=== PATIENT | female | born 1995 | race Caucasian/White ===

== ENCOUNTER 2018-05-24 09:37 | Emergency (ER) | payer MEDICAID ==
[2018-05-24 09:38] VITALS: BMI 18.5
[2018-05-24 09:48] VITALS: TEMP 98.6; O2SAT 100
[2018-05-24] MEDS ORDERED: Sodium Chloride 0.9% 1,000 ML IV STA (10:24)
[2018-05-24] MEDS ORDERED: DiphenhydrAMINE 50 mg/ml Inj IVP STA (10:25)
--- NOTE | 2018-05-24 10:28 | ED PDOC ---
Arrival/HPI - General Chief Complaint: Headache Historian: Patient - History of Present Illness Narrative History of Present Illness (Text): 05/24/18 10:26 22 y/o female, pmh including chronic headache/dizziness (seeing neurologist and junction maker), nkda, c/o feeling headache/dizziness x 3 years. Pt. stated that she has chronic headache/dizziness x 3 years, on and off, seeing neurologist Dr. Oliveros, stated that it's still there with no complete resolution, occasionally feeling chest pain and shortness of breath with dizziness/headache, dizziness as room spinning sensation, no chest pain or shortness of breath now, no cardiopulmonary complaints, no night sweat, no rash, no numbness or tingling, no other medical or psychological complaints. Past Medical History - Provider Review Nursing Documentation Reviewed: Yes - Past History Past History: Non-Contributing - Infectious Disease Hx of Infectious Diseases: None - Cardiac Hx Cardiac Disorders: No - Pulmonary Hx Asthma: Yes (Diagnosed in Jan 2015) - Neurological Hx Neurological Disorder: Yes Hx Dizziness: Yes Hx Headaches: Yes - HEENT Hx HEENT Disorder: No - Renal Hx Renal Disorder: No - Endocrine/Metabolic Hx Endocrine Disorders: No - Hematological/Oncological Hx Blood Disorders: No - Integumentary Hx Dermatological Disorder: No - Musculoskeletal/Rheumatological Hx Musculoskeletal Disorders: No - Gastrointestinal Hx Gastrointestinal Disorders: No - Genitourinary/Gynecological Hx Genitourinary Disorders: No - Psychiatric Hx Psychophysiologic Disorder: No Hx Substance Use: No - Anesthesia Hx Anesthesia Reactions: No Hx Malignant Hyperthermia: No Family/Social History - Physician Review Nursing Documentation Reviewed: Yes Family/Social History: Unknown Family HX Smoking Status: Never Smoked Hx Alcohol Use: No Hx Substance Use: No Allergies/Home Meds Allergies/Adverse Reactions: Allergies No Known Allergies Allergy (Verified 05/24/18 09:40) Home Medications: Home Meds Medication Instructions Recorded Confirmed Meclizine [Antivert] 12.5 mg PO TID PRN 05/24/18 05/24/18 Omeprazole 20 mg PO BID 05/24/18 05/24/18 Propranolol [Inderal] 10 mg PO BID 05/24/18 05/24/18 Topiramate [Trokendi Xr] 25 mg PO DAILY 05/24/18 05/24/18 Review of Systems - Review of Systems Constitutional: Fatigue. absent: Fevers Eyes: absent: Vision Changes ENT: absent: Hearing Changes Respiratory: absent: SOB, Cough Cardiovascular: absent: Chest Pain Gastrointestinal: absent: Abdominal Pain, Nausea, Vomiting Musculoskeletal: absent: Arthralgias, Back Pain Skin: absent: Rash, Pruritis Neurological: Headache, Dizziness Psychiatric: absent: Anxiety, Depression, Suicidal Ideation Physical Exam Vital Signs Reviewed: Yes Vital Signs Temp Pulse Resp BP Pulse Ox 05/24/18 09:43 98.6 F 113 H 16 135/95 H 100 Temperature: Afebrile Blood Pressure: Hypertensive Pulse: Tachycardic Respiratory Rate: Normal Appearance: Positive for: Well-Appearing, Non-Toxic, Comfortable Pain Distress: Mild Mental Status: Positive for: Alert and Oriented X 3 - Systems Exam Head: Present: Atraumatic, Normocephalic, Other (no temporal artery tenderness, no jaw claudication). No: Tenderness, Contusion, Swelling, Ecchymosis, Abrasion, Laceration Pupils: Present: PERRL Extroacular Muscles: Present: EOMI Conjunctiva: Present: Normal Ears: Present: NORMAL TM, Normal Canal. No: Erythema Mouth: Present: Moist Mucous Membranes Pharnyx: Present: Normal. No: ERYTHEMA, EXUDATE, TONSILS ENLARGED Nose (External): Present: Atraumatic. No: Abrasion, Contusion, Laceration Nose (Internal): Present: Normal Inspection, No Active Bleeding. No: Rhinorrhea, Septal Hematoma, Epistaxis Neck: Present: Normal Range of Motion, Trachea Midline. No: Meningeal Signs, MIDLINE TENDERNESS, Paraspinal Tenderness, Lymphadenopathy Respiratory/Chest: Present: Clear to Auscultation, Good Air Exchange. No: Respiratory Distress, Accessory Muscle Use, Wheezes, Decreased Breath Sounds, Rales, Retracting, Rhonchi, Tachypneic, Tender to Palpation Cardiovascular: Present: Regular Rate and Rhythm, Normal S1, S2. No: Murmurs Abdomen: No: Tenderness, Distention, Peritoneal Signs, Rebound, Guarding Back: Present: Normal Inspection. No: CVA Tenderness, Midline Tenderness, Paraspinal Tenderness, Pain with Leg Raise, Decubitus Ulcer Upper Extremity: Present: Normal Inspection, Normal ROM, NORMAL PULSES, Neurovascularly Intact, Capillary Refill < 2s. No: Cyanosis, Edema, Tenderness, Swelling, Deformity Lower Extremity: Present: Normal Inspection, NORMAL PULSES, Normal ROM, Neurovascularly Intact, Capillary Refill < 2 s. No: Edema, Tenderness, Swelling, Deformity Neurological: Present: GCS=15, CN II-XII Intact, Speech Normal, Normal Cerebel lar Funct, Gait Normal, Memory Normal, Other (normal finger to nose test, no focal neurological deficits, normal heel to suresh test. ) Skin: Present: Warm, Dry, Normal Color. No: Rashes Psychiatric: Present: Alert, Oriented x 3, Normal Insight, Normal Concentration Medical Decision Making ED Course and Treatment: 05/24/18 10:30 -labs -ct head -ekg -ivf/benadryl/reglan -observe and reassess 05/24/18 11:52 -Urine hcg is negative -EKG: NSR @ 90 BPM, no ST elevation or depression, no T wave inversion. -CT head Normal CT of the Head. No intracranial mass, hemorrhage or evidence of acute infarct. -Labs are nonsignificant -Trop is negative after 24 hours -Ddimer is negative -BNP is negative -PERC is negative -HEART score is low -UA show +yeast with no bacterial UTI, diflucan po ordered -Pt. feels well, no dizziness or headache, no cardiopulmonary complaints. All labs/radiology results discussed with the patient, advised outpatient follow up. -Discharge home with education on continue your meclizine and headache medication at home, follow up with your own pmd and neurologist/junction maker within 2 days, return to the ER for any new or worsening signs or symptoms. - RAD Interpretation Radiology Orders: 05/24/18 10:24 HEAD W/O CONTRAST [CT] Stat Date of service: 05/24/2018 PROCEDURE: CT HEAD WITHOUT CONTRAST. HISTORY: headache/dizziness x 3 years COMPARISON: None available. TECHNIQUE: Axial computed tomography images were obtained through the head/brain without intravenous contrast. Radiation dose: Total exam DLP = 843.83 mGy-cm. This CT exam was performed using one or more of the following dose reduction techniques: Automated exposure control, adjustment of the mA and/or kV according to patient size, and/or use of iterative reconstruction technique. FINDINGS: HEMORRHAGE: No intracranial hemorrhage. BRAIN: No mass effect or edema. No atrophy or chronic microvascular ischemic changes. VENTRICLES: Unremarkable. No hydrocephalus. CALVARIUM: Unremarkable. PARANASAL SINUSES: Unremarkable as visualized. No significant inflammatory changes. MASTOID AIR CELLS: Unremarkable as visualized. No inflammatory changes. OTHER FINDINGS: None. IMPRESSION: Normal CT of the Head. No intracranial mass, hemorrhage or evidence of acute infarct. Guest Experience Representative: Radiologist - EKG Interpretation EKG Interpretation (Text): 05/24/18 10:51 NSR @ 90 BPM, no ST elevation or depression, no T wave inversion. 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 Disposition/Present on Arrival - Present on Arrival Any Indicators Present on Arrival: No History of DVT/PE: No History of Uncontrolled Diabetes: No Urinary Catheter: No History of Decub. Ulcer: No History Surgical Site Infection Following: None - Disposition Have Diagnosis and Disposition been Completed?: Yes Diagnosis: Candidiasis, Chronic headache Disposition: HOME/ ROUTINE Disposition Time: 13:44 Patient Plan: Discharge Patient Problems: Current Active Problems Problem Status Onset Candidiasis Acute Condition: IMPROVED Additional Instructions: -Discharge home with education on continue your meclizine and headache medication at home, follow up with your own pmd and neurologist/junction maker within 2 days, return to the ER for any new or worsening signs or symptoms. Referrals: Jocelyne Linder DO [Primary Care Provider] - Follow up with primary Maldonado Olson MD [Staff Provider] - Follow up with primary Tha Espinal MD [Staff Provider] - Follow up with primary Forms: [employer] (Yi), WORK NOTE
[2018-05-24 11:17] LABS: URINE APPEARANCE CLEAR (CLEAR); URINE BILIRUBIN NEGATIVE (NEGATIVE); URINE BLOOD LARGE (NEGATIVE); URINE COLOR YELLOW (YELLOW); URINE GLUCOSE (UA) NEGATIVE (NEGATIVE); URINE LEUKOCYTE ESTERASE NEGATIVE Leu/uL (NEGATIVE); URINE PROTEIN TRACE mg/dL (<30 mg/dL); URINE UROBILINOGEN 0.2 E.U./dL (<1 E.U./dL)
[2018-05-24 11:18] LABS: BASO # 0.02 K/mm3 (0.0-2.0); BASO % 0.3 % (0.0-3.0); EOS % 0.5 % (1.5-5.0); LYMPH # 1.1 (1.2-3.4); LYMPH % 18.2 % (22.0-35.0); MEAN CELL VOLUME 87.5 fl (80.0-105.0); MEAN CORPUSCULAR HEMOGLOBIN 30.2 pg (25.0-35.0); MEAN CORPUSCULAR HGB CONC 34.5 g/dl (31.0-37.0); MEAN PLATELET VOLUME 9.8 fl (7.0-11.0); MONO # 0.3 (0.1-0.6); MONO % 4.3 % (1.0-6.0); RBC 4.64 10^6/uL (3.5-6.1); RED CELL DISTRIBUTION WIDTH 12.6 % (11.5-14.5); WHITE BLOOD COUNT 6.3 10^3/uL (4.5-11.0)
[2018-05-24 11:26] LABS: URINE BACTERIA MANY /hpf; URINE EPITHELIAL CELLS MANY /hpf (0-5); URINE RBC 25 - 30 /hpf (0-2)
[2018-05-24 11:27] LABS: URINE AMORPHOUS SEDIMENT FEW /hpf; URINE COARSE GRANULAR CAST TRACE /hpf
[2018-05-24 11:29] LABS: ALB/GLOB RATIO 1.3 (1.1-1.8); ALBUMIN 4.8 g/dL (3.0-4.8); ALT/SGPT 18 U/L (7-56); AST/SGOT 26 U/L (14-36); BLOOD UREA NITROGEN 15 mg/dL (7-21); CALCIUM 9.9 mg/dL (8.4-10.5); GFR NON-AFRICAN AMERICAN > 60
[2018-05-24 11:49] LABS: B-TYPE NATRIURETIC PEPTIDE 63.5 pg/mL (0-450); TROPONIN I < 0.01 ng/mL
[2018-05-24 12:48] VITALS: RESP 18
--- NOTE | 2018-05-24 13:39 | CT ---
Date of service: 05/24/2018 PROCEDURE: CT HEAD WITHOUT CONTRAST. HISTORY: headache/dizziness x 3 years COMPARISON: None available. TECHNIQUE: Axial computed tomography images were obtained through the head/brain without intravenous contrast. Radiation dose: Total exam DLP = 843.83 mGy-cm. This CT exam was performed using one or more of the following dose reduction techniques: Automated exposure control, adjustment of the mA and/or kV according to patient size, and/or use of iterative reconstruction technique. FINDINGS: HEMORRHAGE: No intracranial hemorrhage. BRAIN: No mass effect or edema. No atrophy or chronic microvascular ischemic changes. VENTRICLES: Unremarkable. No hydrocephalus. CALVARIUM: Unremarkable. PARANASAL SINUSES: Unremarkable as visualized. No significant inflammatory changes. MASTOID AIR CELLS: Unremarkable as visualized. No inflammatory changes. OTHER FINDINGS: None. IMPRESSION: Normal CT of the Head. No intracranial mass, hemorrhage or evidence of acute infarct.
[2018-05-24 13:46] VITALS: PULSE 93
[2018-05-24 13:50] VITALS: BP 124/66
--- NOTE | 2018-05-24 17:54 | CARD ---
APPROVED REPORT Date of service: 05/24/2018 EKG Measurement Heart [id number] <Conclusion> Normal sinus rhythm Rightward axis Borderline ECG
== END 2018-05-24 13:55 | disposition home or self-care (01) ==
LOC: ED 09:37
DX: B37.9 Candidiasis, unspecified (principal); R51 Headache
CPT/HCPCS: 70450; 80053; 81001; 81025; 83880; 84484; 85025; 85378; 93005; 96374; 96375; 99285; J1200; J2765; J7030